=== PATIENT | female | born 1990 | race Caucasian/White ===

== ENCOUNTER 2016-12-04 19:52 | Emergency (ER) | payer OTHER ==
[2016-12-04 20:18] VITALS: BP 110/60; PULSE 85; RESP 18; TEMP 98.9
--- NOTE | 2016-12-04 20:38 | ED ---
Lower Extremity Injury HPI - General Chief Complaint: Extremity Injury, Lower Stated Complaint: left ankle and foot pain Time Seen by Provider: 12/04/16 20:19 Source: patient, RN notes reviewed Mode of arrival: wheelchair Limitations: no limitations - History of Present Illness Initial Comments: 26-year-old female presents to emergency room chief complaint of left ankle pain. She is admitted to the past year or so. She states that it started hurting more over the last 2 months. She went to [facility] as well as her family care doctor and they told her to follow-up with her psychiatrist. Patient states there is no new falls or injuries. The patient denies any change in the pain. She states the chest is constant ankle pain worse to walking. She did not notice any redness or swelling around the area.Patient denies any recent fever, chills, shortness of breath, chest pain, back pain, abdominal pain, nausea vomiting, numbness or tingling, dysuria or hematuria, constipation or diarrhea, headaches or visual changes, or any other current symptoms. - Related Data Home Medications Medication Instructions Recorded Confirmed No Known Home Medications [No 12/04/16 12/04/16 Known Home Medications] Allergies Allergy/AdvReac Type Severity Reaction Status Date / Time iodine Allergy Rash/Hives Verified 12/04/16 20:18 latex Allergy Rash/Hives Verified 12/04/16 20:18 Review of Systems ROS Statement: Those systems with pertinent positive or pertinent negative responses have been documented in the HPI. ROS Other: All systems not noted in ROS Statement are negative. Past Medical History Past Medical History: Asthma Additional Past Medical History / Comment(s): Obstetric history: First was a in 2005 6#10oz. Second was a vaginal delivery 8#5oz in 2008. Third was a vaginal delivery in 2010 6#8oz. This is her fourth and she has had care with me since 9 weeks gestation. A+, abs neg, Rub Imm, RPR NR, Hep B neg, GBS neg. She has been on zoloft since 19 weeks. Her shot and killed himself when she was 11 weeks and she has been dealing with depression and anxiety since. She is in councelling and on zoloft. Normal anatomy US and normal 1hr GTT. History of Any Multi-Drug Resistant Organisms: None Reported Past Surgical History: Appendectomy, Section Past Anesthesia/Blood Transfusion Reactions: No Reported Reaction Past Psychological History: Bipolar, Depression Smoking Status: Current every day smoker Past Alcohol Use History: None Reported Past Drug Use History: Marijuana - Past Family History Father Family Medical History: No Reported History General Exam - General Exam Comments Initial Comments: General: The patient is awake and alert, in no distress, and does not appear acutely ill. Neck: The neck is supple, there is no tenderness. Cardiovascular: There is a regular rate and rhythm. No murmur, rub or gallop is appreciated. Respiratory: Lungs are clear to auscultation, respirations are non-labored, breath sounds are equal. No wheezes, stridor, rales, or rhonchi. Musculoskeletal: Sensation intact with pupils pulses are 4+. Full range of motion of left knee and left ankle. Patient does have diffuse tenderness throughout the left ankle and foot with no point tenderness especially noted. There is no swelling there is no erythema. Neurological: CN II-XII intact, There are no obvious motor or sensory deficits. Coordination appears grossly intact. Speech is normal. Skin: Skin is warm and dry and no rashes or lesions are noted. Psychiatric: Normal mood and affect. Limitations: no limitations Course Vital Signs 12/04/16 20:16 Temperature 98.9 F Pulse Rate 85 Respiratory 18 Rate Blood Pressure 110/60 O2 Sat by Pulse 99 Oximetry Medical Decision Making - Medical Decision Making 26-year-old female presents emergency Department chief complaint of left foot and ankle pain that has been constant for the last year. This time patient had x-rays in 2 weeks ago that were negative. We discussed follow-up with possible orbital for second opinion. Patient is in agreement with the plan. Patient will start prior discharge. We discussed all the patient's questions. She stated she understood. Patient here in the plan. She'll be discharged home. Disposition Clinical Impression: Pain, foot, left, chronic Disposition: HOME SELF-CARE Condition: Stable Instructions: Arthralgia (ED) Additional Instructions: Please use medication as discussed. Please follow up with family doctor if symptoms have not improved over the next two days. Please return to the emergency room if your symptoms increase or worsen or for any other concerns. Referrals: Sanjuana Hernandez MD [Primary Care Provider] - 1-2 days Elijah Crawley MD [Medical Doctor] - 1-2 days Time of Disposition: 20:38
[2016-12-04] MEDS ORDERED: KETOROLAC 60 MG/2 ML VIAL IM STA (20:39)
== END 2016-12-04 20:36 | disposition home or self-care (01) ==
LOC: EC 19:52
DX: O99.89 Other specified diseases and conditions complicating pregnancy, childbirth and the puerperium (principal); G89.29 Other chronic pain; M79.672 Pain in left foot; O99.340 Other mental disorders complicating pregnancy, unspecified trimester; F32.9 Major depressive disorder, single episode, unspecified; O99.330 Smoking (tobacco) complicating pregnancy, unspecified trimester; F17.200 Nicotine dependence, unspecified, uncomplicated; Z91.048 Other nonmedicinal substance allergy status; Z91.040 Latex allergy status; Z79.899 Other long term (current) drug therapy; Z3A.00 Weeks of gestation of pregnancy not specified
CPT/HCPCS: 99283; 96372; J1885

== ENCOUNTER → 2018-11-29 | Outpatient (CLI) | payer OTHER ==
--- NOTE | 2018-11-29 10:03 | US ---
EXAMINATION TYPE: US abdomen complete DATE OF EXAM: 11/29/2018 COMPARISON: Ultrasound of 12/19/1713 CLINICAL HISTORY: R17 Unspecified jaundice. abnormal labs. No pain. NPO. No previous surgeries. EXAM MEASUREMENTS: Liver Length: 16.2 cm Gallbladder Wall: 0.2 cm CBD: 0.4 cm CHD: 0.5 cm Spleen: 8.8 cm Right Kidney: 9.4 x 4.4 x 3.7 cm Left Kidney: 10.0 x 4.2 x 5.0 cm Pancreas: wnl Liver: wnl Gallbladder: wnl Evidence for sonographic Martino's sign: neg CBD: wnl CHD: wnl Spleen: wnl Right Kidney: wnl Left Kidney: wnl Upper IVC: wnl Abd Aorta: No AAA visualized The liver is homogenous. The intrahepatic portion of the IVC and proximal abdominal aorta are within normal limits. There is no evidence of cholelithiasis. Common bile duct is unremarkable. The visu alized portions of the pancreas are homogenous. The spleen is unremarkable. Kidneys are symmetric a nd free of hydronephrosis. No renal lesions are seen. IMPRESSION: Unremarkable abdominal ultrasound. MRI liver could be performed if there is further gustabo rn given this patient's history of jaundice.
== END ==
LOC: RADUSWWP 09:23
PROVIDERS: ATTEND Family Medicine
DX: R17 Unspecified jaundice (principal)
CPT/HCPCS: 76700

== ENCOUNTER → 2018-12-21 | Outpatient (CLI) | payer OTHER | END | disposition home or self-care (01) | LOC: LABWHC1 13:54 | PROVIDERS: ATTEND Family Medicine | DX: J02.9 Acute pharyngitis, unspecified (principal); R05 Cough; R19.7 Diarrhea, unspecified; R11.10 Vomiting, unspecified | CPT/HCPCS: 87502 ==

== ENCOUNTER 2019-06-26 16:56 | Emergency (ER) | payer OTHER ==
[2019-06-26 17:08] VITALS: BP 119/72; PULSE 100; RESP 20; TEMP 98
[2019-06-26] MEDS ORDERED: KETOROLAC 60 MG/2 ML VIAL IM STA (17:51)
--- NOTE | 2019-06-26 18:33 | XR ---
EXAMINATION TYPE: XR thoracic spine complete DATE OF EXAM: 06/26/2019 COMPARISON: NONE HISTORY: Back pain TECHNIQUE: 3 views FINDINGS: Thoracic vertebra have normal spacing and alignment. Posterior elements are intact. There i s no paraspinal mass. IMPRESSION: Negative thoracic spine exam.
--- NOTE | 2019-06-26 18:34 | XR ---
EXAMINATION TYPE: XR lumbar spine 2 or 3V DATE OF EXAM: 06/26/2019 COMPARISON: NONE HISTORY: Back pain TECHNIQUE: 3 views FINDINGS: Lumbar vertebra have normal alignment. Posterior elements are intact. Sacroiliac joints elodia ear normal. IMPRESSION: Normal lumbar spine exam.
[2019-06-26] MEDS ORDERED: CYCLOBENZAPRINE 10MG STARTER 3 TAB BTL PO STA (19:19)
--- NOTE | 2019-06-26 19:19 | ED ---
General Adult HPI - General Source: patient, RN notes reviewed, old records reviewed Mode of arrival: ambulatory Limitations: no limitations <Will Calvo - Last Filed: 06/26/19 19:15> <Jillian De Guzman - Last Filed: 07/01/19 14:37> - General Chief complaint: Back Pain/Injury Stated complaint: back pain Time Seen by Provider: 06/26/19 17:12 - History of Present Illness Initial comments: 29-year-old female patient presents to ED complaining of left parathoracic left paralumbar back pain. Patient reports that she was crawling around with her kids today may be indicated her back then. Denies any paresthesias, denies any radiculopathy. Denies any red flag symptoms. Patient is currently ambulatory without difficulty. Patient does report that she had a fall off a porch in 2005 and she has had waxing and waning back pain since. Denies any recent falls. Denies any other complaints. Is a chance of being . Systemic: Pt denies fatigue, fever/chills, rash. Pt denies weakness, night sweats, weight loss. Neuro: Pt denies headache, visual disturbances, syncope or pre-syncope. HEENT: Pt denies ocular discharge or irritation, otalgia, rhinorrhea, pharyngitis or notable lymphadenopathy. Cardiopulmonary: Pt denies chest pain, SOB, heart palpitations, dyspnea on exertion. Abdominal/GI: Pt denies abdominal pain, n/v/d. : Pt denies dysuria, burning w/ urination, frequency/urgency. Denies new onset urinary or bowel incontinence. MSK: Pt denies loss of strength or function in extremities. Neuro: Pt denies new onset weakness, paresthesias. (Will Calvo) - Related Data Home Medications Medication Instructions Recorded Confirmed No Known Home Medications 12/04/16 12/04/16 Allergies Allergy/AdvReac Type Severity Reaction Status Date / Time iodine Allergy Rash/Hives Verified 06/26/19 17:08 latex Allergy Rash/Hives Verified 06/26/19 17:08 Review of Systems ROS Other: All systems not noted in ROS Statement are negative. <Will Calvo - Last Filed: 06/26/19 19:15> ROS Other: All systems not noted in ROS Statement are negative. <Jillian De Guzman - Last Filed: 07/01/19 14:37> ROS Statement: Those systems with pertinent positive or pertinent negative responses have been documented in the HPI. Past Medical History Past Medical History: Asthma Additional Past Medical History / Comment(s): Obstetric history: First was a in 2005 6#10oz. Second was a vaginal delivery 8#5oz in 2008. Third was a vaginal delivery in 2010 6#8oz. This is her fourth and she has had care with me since 9 weeks gestation. A+, abs neg, Rub Imm, RPR NR, Hep B neg, GBS neg. She has been on zoloft since 19 weeks. Her shot and killed himself when she was 11 weeks and she has been dealing with depression and anxiety since. She is in councelling and on zoloft. Normal anatomy US and normal 1hr GTT. History of Any Multi-Drug Resistant Organisms: None Reported Past Surgical History: Appendectomy, Section Past Anesthesia/Blood Transfusion Reactions: No Reported Reaction Past Psychological History: Bipolar, Depression Smoking Status: Current every day smoker Past Alcohol Use History: None Reported Past Drug Use History: Marijuana - Past Family History Father Family Medical History: No Reported History <Will Calvo - Last Filed: 06/26/19 19:15> General Exam Limitations: no limitations <Will Calvo - Last Filed: 06/26/19 19:15> - General Exam Comments Initial Comments: Constitutional: NAD, AOX3, Pt has pleasant affect. HEENT: NC/AT, trachea midline, neck supple, no lymphadenopathy. Posterior pharynx non erythematous, without exudates. External ears appear normal, without discharge. Mucous membranes moist. Eyes PERRLA, EOM intact. There is no scleral icterus. No pallor noted. Cardiopulmonary: RRR, no murmurs, rubs or gallops, no JVD noted. Lungs CTAB in anterior and posterior rodriguez. No peripheral edema. Abdominal exam: Abdomen soft and non-distended. Abdomen non-tender to palpation in all 4 quadrants. Bowel sounds active in LLQ. No hepatosplenomegaly. No ecchymosis Neuro: CN II-XII grossly intact. No nuchal rigidity. No raccon eyes, no castle sign, no hemotympanum. No cervical spinal tenderness. MSK: Left parathoracic left paralumbar muscular region mildly tender to palpation. Reproducible with resisted movement. Straight leg raise is negative. Heel to toe walking is intact. Distal strength is intact. No posterior calf tenderness bilaterally, homans sign negative bilaterally. Posterior tibialis and radial pulse +2 bilaterally. Sensation intact in upper and lower extremities. Full active ROM in upper and lower extremities, 5/5 stregnth. 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 Patient also signs are stable, afebrile. Physical exam displayed left parathoracic left paralumbar tenderness. No skin changes. Plain films are negative. Patient denies any red flag symptoms including lwoer extremity weakness, loss of bowel or bladder control, paresthesias. She feeling improved with Toradol. She reports she is having some muscle spasms in the region of complaint, will be discharged with Flexeril starter pack. We'll be discharged for follow-up with primary care provider will return to ER physician worsens. Case discussed with Dr. De Guzman. (Will Calvo) I was available for consultation in the emergency department. The history and physical exam were done by the midlevel provider. I was consulted for this patients care. I reviewed the case with the midlevel provider and based on their presentation of the patient, I agree with the assessment, medical decision making and plan of care as documented. Chart was dictated using kidthing dictation software. Attempts were made to correct any dictation errors however some typographical errors may persist. (Jillian De Guzman) Disposition Is patient prescribed a controlled substance at d/c from ED?: No <Will Calvo - Last Filed: 06/26/19 19:15> <Jillian De Guzman - Last Filed: 07/01/19 14:37> Clinical Impression: Strain of thoracic back region, Strain of lumbar paraspinal muscle Disposition: HOME SELF-CARE Condition: Stable Instructions (If sedation given, give patient instructions): Acute Low Back Pain (ED) Additional Instructions: Follow-up with primary care provider tomorrow. Use Tylenol Motrin as needed for pain. Use cold or heat pack as tolerated. Use muscle relaxers as needed for muscle spasm. Return to ER if condition worsens. Referrals: Kourtney Isaacs MD [Primary Care Provider] - 1-2 days
== END 2019-06-26 19:27 | disposition home or self-care (01) ==
LOC: EC 16:56
DX: S39.012A Strain of muscle, fascia and tendon of lower back, initial encounter (principal); S29.012A Strain of muscle and tendon of back wall of thorax, initial encounter; F17.200 Nicotine dependence, unspecified, uncomplicated; Z91.041 Radiographic dye allergy status; Z91.040 Latex allergy status; X58.XXXA Exposure to other specified factors, initial encounter
CPT/HCPCS: 72072; 72100; 99284; 96372; J1885

== ENCOUNTER → 2020-06-08 | Outpatient (CLI) | payer OTHER | END | disposition home or self-care (01) | LOC: LABWHC1 11:50 | PROVIDERS: ATTEND Family Medicine | DX: Z53.9 Procedure and treatment not carried out, unspecified reason (principal) ==

== ENCOUNTER 2020-08-27 12:36 | Emergency (ER) | payer OTHER ==
--- NOTE | 2020-08-27 12:54 | ED ---
General Adult HPI - General Stated complaint: back/neck/shoulder pain Time Seen by Provider: 08/27/20 12:54 - History of Present Illness Initial comments: 30-year-old female presenting to the emergency department with a chief complaint of back pain. Patient reports history of chronic back pain with occasional spasms. Patient reports developed back spasms yesterday that started in her lower back and the radiate superiorly to her neck. Patient states the pain began after she got out of bed and her legs "turned one-way and the torso the other way". Patient reports spasms in the back, particularly on the right side of her neck and trapezius. Patient denies any numbness or tingling. Patient states this feels like "jolts". Patient states she asked her little daughter walk on her back but that made the pain worse. States the pain is worse with left and right rotation of the back. She denies any radiation of the pain to the lower extremities. Denies saddle anesthesia, urinary retention with overflow incontinence or bowel incontinence. Has abdominal pain chest pain. - Related Data Home Medications Medication Instructions Recorded Confirmed ARIPiprazole [Abilify] 5 mg PO DAILY 08/27/20 08/27/20 Escitalopram Oxalate [Lexapro] 10 mg PO HS 08/27/20 08/27/20 Previous Rx's Medication Instructions Recorded Acetaminophen Tab [Tylenol Tab] 500 mg PO Q6H PRN #30 tablet 08/27/20 Cyclobenzaprine [Flexeril] 10 mg PO TID PRN #15 tab 08/27/20 Ibuprofen [Motrin] 800 mg PO Q6HR #30 tab 08/27/20 Allergies Allergy/AdvReac Type Severity Reaction Status Date / Time iodine Allergy Rash/Hives Verified 08/27/20 14:27 latex Allergy Rash/Hives Verified 08/27/20 14:27 Review of Systems ROS Statement: Those systems with pertinent positive or pertinent negative responses have been documented in the HPI. ROS Other: All systems not noted in ROS Statement are negative. Past Medical History Past Medical History: Asthma Additional Past Medical History / Comment(s): Obstetric history: First was a in 2005 6#10oz. Second was a vaginal delivery 8#5oz in 2008. Third was a vaginal delivery in 2010 6#8oz. This is her fourth and she has had care with me since 9 weeks gestation. A+, abs neg, Rub Imm, RPR NR, Hep B neg, GBS neg. She has been on zoloft since 19 weeks. Her shot and killed himself when she was 11 weeks and she has been dealing with depression and anxiety since. She is in councelling and on zoloft. Normal anatomy US and normal 1hr GTT. History of Any Multi-Drug Resistant Organisms: None Reported Past Surgical History: Appendectomy, Section Past Anesthesia/Blood Transfusion Reactions: No Reported Reaction Past Psychological History: Bipolar, Depression Past Alcohol Use History: None Reported Past Drug Use History: Marijuana - Past Family History Father Family Medical History: No Reported History General Exam Limitations: no limitations General appearance: alert, in no apparent distress Head exam: Present: atraumatic, normocephalic, normal inspection Eye exam: Present: normal appearance, PERRL, EOMI Pupils: Present: normal accommodation ENT exam: Present: normal exam, normal oropharynx, mucous membranes moist Neck exam: Present: normal inspection, tenderness (Paraspinal tenderness in the right side of the neck particularly over the right trapezius.), full ROM. Absent: meningismus, lymphadenopathy, thyromegaly Respiratory exam: Present: normal lung sounds bilaterally. Absent: respiratory distress, wheezes, rales Cardiovascular Exam: Present: regular rate, normal rhythm, normal heart sounds Extremities exam: Present: normal inspection, full ROM, normal capillary refill, other (Palpable DP and PT bilaterally. Palpable ulnar and radial pulses bilateral.). Absent: pedal edema, joint swelling, calf tenderness Back exam: Present: normal inspection, tenderness, muscle spasm, paraspinal tenderness (Paraspinal tenderness over the lumbar sacral region up to the neck. Tenderness along the right paraspinal cervical region and tenderness along the trapezius.). Absent: full ROM (Limited range of motion with left and right rotation due to pain), vertebral tenderness Neurological exam: Present: alert, oriented X3, CN II-XII intact Psychiatric exam: Present: normal affect, normal mood Skin exam: Present: warm, dry, intact, normal color Course Vital Signs 08/27/20 08/27/20 12:56 14:19 Temperature 98.2 F Pulse Rate 88 72 Respiratory 18 18 Rate Blood Pressure 114/78 96/62 O2 Sat by Pulse 100 99 Oximetry Medical Decision Making - Medical Decision Making 30-year-old female presenting to the emergency department with a chief complaint of back pain. On physical examination, most of the pain is located on the right side of the neck and trapezius without any paresthesias. No concern for cauda equina. Patient continues to have spasms in the ED. Patient was given Lidoderm patch, Valium, Toradol. On reevaluation patient reports continuous pain with mild improvement. Patient was also given 4 mg of morphine. Patient will be discharged with Tylenol, Motrin, Flexeril. On reevaluation, patient reports improvement in symptoms. Patient was advised to follow-up with route specialist. Return parameters discussed the patient was understanding and agreeable. Disposition Clinical Impression: Mechanical back pain, Muscle spasms of neck Disposition: HOME SELF-CARE Condition: Stable Instructions (If sedation given, give patient instructions): Acute Low Back Pain (ED) Additional Instructions: Take prescribed medication as directed. Follow with route specialist. Return to emergency department if symptoms worsen. Prescriptions: Cyclobenzaprine [Flexeril] 10 mg PO TID PRN #15 tab PRN Reason: Muscle Spasm Ibuprofen [Motrin] 800 mg PO Q6HR #30 tab Acetaminophen Tab [Tylenol Tab] 500 mg PO Q6H PRN #30 tablet PRN Reason: Pain Is patient prescribed a controlled substance at d/c from ED?: No Referrals: Kourtney Isaacs MD [Primary Care Provider] - 1-2 days Time of Disposition: 14:39
[2020-08-27 13:02] VITALS: RESP 18; TEMP 98.2
[2020-08-27] MEDS ORDERED: KETOROLAC 15 MG/ML 1 ML VIAL IM STA (13:10)
[2020-08-27] MEDS ORDERED: DIAZEPAM 5 MG/ML 2 ML INJ IVP STA (13:10)
[2020-08-27] MEDS ORDERED: LIDOCAINE 5% PATCH TOPICAL STA (13:10)
[2020-08-27] MEDS ORDERED: DIAZEPAM 5 MG/ML 2 ML INJ IM STA (13:26)
[2020-08-27] MEDS ORDERED: MORPHINE SULFATE 4 MG/ML SYRINGE IVP STA (14:02)
[2020-08-27] MEDS ORDERED: MORPHINE SULFATE 4 MG/ML SYRINGE IM STA (14:03)
[2020-08-27 14:20] VITALS: BP 96/62; PULSE 72
[2020-08-27] MEDS ORDERED: ACET/COD 300 MG/30 MG STARTER PACK 6 TAB BTL PO STA (14:39)
[2020-08-27] MEDS ORDERED: CYCLOBENZAPRINE 10MG STARTER 3 TAB BTL PO STA (14:39)
== END 2020-08-27 14:54 | disposition home or self-care (01) ==
LOC: EC 12:36
DX: M54.9 Dorsalgia, unspecified (principal); M62.838 Other muscle spasm; F31.9 Bipolar disorder, unspecified; Z79.899 Other long term (current) drug therapy; Z91.040 Latex allergy status; Z91.048 Other nonmedicinal substance allergy status
CPT/HCPCS: 99283; 96372 ×3; J2270; J3360; J1885

== ENCOUNTER → 2020-08-28 | Outpatient (CLI) | payer OTHER ==
--- NOTE | 2020-08-28 15:25 | XR ---
Right shoulder HISTORY: M 25.511 3 views the right shoulder Patient shows screw anchor within the right humeral head. Distal clavicle in the right has been resec ingris. There is a residual ossific density present at the resection site which is well-corticated. Ther e is no fracture or dislocation. Right lung apex as visualized is normal. Bone mineralization and ali gnment are maintained. IMPRESSION: Postop changes. Shoulder MRI may be of benefit.
--- NOTE | 2020-08-28 15:26 | XR ---
Cervical spine HISTORY: M 54.2, M 54.5 5 views of the cervical spine Cervical vertebral bodies show preserved height, alignment, and bone mineralization. Disc spaces and prevertebral soft tissues are normal. There is no evident foraminal encroachment. IMPRESSION: Normal cervical spine.
--- NOTE | 2020-08-28 15:28 | XR ---
Lumbosacral spine HISTORY: M 54.2, M 54.5 5 views of lumbosacral spine, correlation prior lumbar spine 06/26/2019 Lumbar vertebral bodies show preserved height, alignment, and bone mineralization. Disc spaces are ma intained with exception of loss of disc height L5-S1. There is overlying artifact. No evident spondyl olysis. IMPRESSION: Stable findings. No acute abnormality. Loss of disc at L5-S1 can be normal, MRI could be performed for additional evaluation.
== END | disposition home or self-care (01) ==
LOC: RADXRMAIN 14:35
PROVIDERS: ATTEND Family Medicine
DX: Z98.890 Other specified postprocedural states (principal); M54.2 Cervicalgia; M54.5 Low back pain; M25.511 Pain in right shoulder
CPT/HCPCS: 72050; 72110

== ENCOUNTER 2022-08-28 17:34 | Emergency (ER) | payer OTHER ==
[2022-08-28 17:41] VITALS: TEMP 97.9
[2022-08-28] MEDS ORDERED: KETOROLAC 15 MG/ML 1 ML VIAL IM STA (17:55)
--- NOTE | 2022-08-28 18:22 | XR ---
EXAMINATION TYPE: XR shoulder complete BILAT DATE OF EXAM: 08/28/2022 6:15 PM INDICATION: Patient age:Female; 32 years old; Reason for study: pain with rom; COMPARISON: 08/28/2020 TECHNIQUE: Bilateral shoulders was examined in AP, internally rotated and scapular Y projections. FINDINGS: Similar morphology to the right shoulder osseous structures with anchor within the right proximal hum erus. Degeneration changes, clavicular joint with calcified joint body is unchanged from prior in 21. The left shoulder demonstrates no evidence for significant degeneration or acute process. No evidence of fracture. No evidence of acute osseous pathology, joint dislocation, or soft tissue swelling. The remaining por tions of the visualized chest are unremarkable. IMPRESSION: Right: Mild right AC joint osteoarthrosis changes versus remote posttraumatic changes. Repair changes noted with anchor in place.No acute osseous pathology. Left: No acute process of the left shoulder, no significant degeneration of the left shoulder.
--- NOTE | 2022-08-28 18:27 | ED ---
General Adult HPI - General Chief complaint: Extremity Injury, Upper Stated complaint: shoulder pain Time Seen by Provider: 08/28/22 17:42 Source: patient Mode of arrival: ambulatory Limitations: no limitations - History of Present Illness Initial comments: Patient is a 32-year-old female presenting with chief complaint of pain to the bilateral shoulders. states she had a previous rotator cuff injury to the right shoulder, she underwent surgical intervention. She states that as a reason she is having progressive pain again in the shoulder. Patient states that she is also having similar pain to her initial rotator cuff injury in the left shoulder. She denies any new injury or trauma. She admits to pain with range of motion. No chest pain, difficulty breathing, fever, chills, nausea, vomiting. - Related Data Home Medications Medication Instructions Recorded Confirmed ARIPiprazole [Abilify] 5 mg PO DAILY 08/27/20 08/27/20 Escitalopram Oxalate [Lexapro] 10 mg PO HS 08/27/20 08/27/20 Previous Rx's Medication Instructions Recorded Acetaminophen Tab [Tylenol Tab] 500 mg PO Q6H PRN #30 tablet 08/27/20 Cyclobenzaprine [Flexeril] 10 mg PO TID PRN #15 tab 08/27/20 Ibuprofen [Motrin] 800 mg PO Q6HR #30 tab 08/27/20 Allergies Allergy/AdvReac Type Severity Reaction Status Date / Time iodine Allergy Rash/Hives Verified 08/28/22 17:41 latex Allergy Rash/Hives Verified 08/28/22 17:41 Review of Systems ROS Statement: Those systems with pertinent positive or pertinent negative responses have been documented in the HPI. ROS Other: All systems not noted in ROS Statement are negative. Past Medical History Past Medical History: Asthma Additional Past Medical History / Comment(s): Obstetric history: First was a in 2005 6#10oz. Second was a vaginal delivery 8#5oz in 2008. Third was a vaginal delivery in 2010 6#8oz. This is her fourth and she has had care with me since 9 weeks gestation. A+, abs neg, Rub Imm, RPR NR, Hep B neg, GBS neg. She has been on zoloft since 19 weeks. Her shot and killed himself when she was 11 weeks and she has been dealing with depression and anxiety since. She is in councelling and on zoloft. Normal anatomy US and normal 1hr GTT. History of Any Multi-Drug Resistant Organisms: None Reported Past Surgical History: Appendectomy, Section Additional Past Surgical History / Comment(s): rigth shoulder Past Anesthesia/Blood Transfusion Reactions: No Reported Reaction Past Psychological History: Bipolar, Depression Smoking Status: Vaper Past Alcohol Use History: None Reported Past Drug Use History: Marijuana - Past Family History Father Family Medical History: No Reported History General Exam Limitations: no limitations General appearance: alert, in no apparent distress Head exam: Present: atraumatic, normocephalic, normal inspection Eye exam: Present: normal appearance Neck exam: Present: normal inspection, full ROM Extremities exam: Present: normal inspection, full ROM (pain with abduction), tenderness (B/L shoulders, anteriorly) Neurological exam: Present: alert, oriented X3, CN II-XII intact Psychiatric exam: Present: normal affect, normal mood Skin exam: Present: warm, dry, intact, normal color. Absent: rash Course Vital Signs 08/28/22 08/28/22 17:39 20:33 Temperature 97.9 F Pulse Rate 78 80 Respiratory 20 18 Rate Blood Pressure 122/77 120/75 O2 Sat by Pulse 100 100 Oximetry Medical Decision Making - Medical Decision Making Was pt. sent in by a medical professional or institution (JOANIE Chan, [facility] L[facility], urgent care, hospital, or penitentiary...) When possible be specific @ -[No] Did you speak to anyone other than the patient for history (EMS, parent, family, police, friend...)? What history was obtained from this source @ -[No] Did you review nursing and triage notes (agree or disagree)? Why? @ -[I reviewed and agree with nursing and triage notes] Were old charts reviewed (outside hosp., previous admission, EMS record, old EKG, old radiological studies, urgent care reports/EKG's, penitentiary records)? Report findings @ -[No old charts were reviewed] Differential Diagnosis (chest pain, altered mental status, abdominal pain women, abdominal pain men, vaginal bleeding, weakness, fever, dyspnea, syncope, headache, dizziness, GI bleed, back pain, seizure, CVA, palpatations, mental health)? @ -Differential includes strain, fracture, dislocation, muscle spasm, fibromyalgia EKG interpreted by me (3pts min.). @ -[As above] X-rays interpreted by me (1pt min.). @ -Xrays show no acute process CT interpreted by me (1pt min.). @ -[None done] U/S interpreted by me (1pt. min.). @ -[None done] What testing was considered but not performed or refused? (CT, X-rays, U/S, labs)? Why? @ -[None] What meds were considered but not given or refused? Why? @ -[None] Did you discuss the management of the patient with other professionals (professionals i.e. DrBeny, PA, BLEACHER LARD, lab, RT, psych nurse, social media analyst, cementer, teacher, conservation science officer, home health care case manager)? Give summary @ -[No] Was smoking cessation discussed for >3mins.? @ -[No] Was critical care preformed (if so, how long)? @ -[No] Were there social determinants of health that impacted care today? How? (Homelessness, low income, unemployed, alcoholism, drug addiction, transportation, low edu. Level, literacy, decrease access to med. care, correction, rehab)? @ -[No] Was there de-escalation of care discussed even if they declined (Discuss DNR or withdrawal of care, Hospice)? DNR status @ -[No] What co-morbidities impacted this encounter? (DM, HTN, Smoking, COPD, CAD, Cancer, CVA, ARF, Chemo, Hep., AIDS, mental health diagnosis, sleep apnea, morbid obesity)? @ -[None] Was patient admitted / discharged? Hospital course, mention meds given and route, prescriptions, significant lab abnormalities, going to OR and other pertinent info. @ -Patient is a 32-year-old female presenting with chief complaint of bilateral shoulder pain. Patient was bringing her son and for separate complaint and wanted to be evaluated while she was here. Patient has history of right-sided rotator cuff injury which required surgical intervention, she states that the pain is been flaring up and a similar pain is throbbing on the left side. No injury or trauma. On physical examination there is normal inspection is neurovascularly intact, there is some tenderness on palpation of the anterior shoulder. X-rays show no acute process. Pain is likely due to chronic degenerative changes. Patient is educated on supportive treatment and instructed to follow-up with her orthopedic surgeon. Follow-up with PCP. Report back to ER with any new or worsening symptoms. Discussed return parameters and answered all questions. Patient conveyed verbal understanding and agreed to the plan. I discussed this case in detail with my attending Dr. [place] Undiagnosed new problem with uncertain prognosis? @ -[No] Drug Therapy requiring intensive monitoring for toxicity (Heparin, Nitro, Insulin, Cardizem)? @ -[No] Were any procedures done? @ -[No] Diagnosis/symptom? @ -Shoulder strain Acute, or Chronic, or Acute on Chronic? @ -Acute Uncomplicated (without systemic symptoms) or Complicated (systemic symptoms)? @ -Uncomplicated Side effects of treatment? @ -[No] Exacerbation, Progression, or Severe Exacerbation? @ -[No] Disposition Clinical Impression: Strain of shoulder Disposition: HOME SELF-CARE Condition: Good Instructions (If sedation given, give patient instructions): Rotator Cuff Injury (ED), Shoulder Pain (ED) Additional Instructions: Follow-up with PCP and your orthopedist. Report back to ER with any new or worsening symptoms. Take Motrin and Tylenol as needed for pain control. Is patient prescribed a controlled substance at d/c from ED?: No Referrals: Kourtney Isaacs MD [Primary Care Provider] - 1-2 days Johnathan Odonnell DO [Doctor of Osteopathic Medicine] - 1-2 days Time of Disposition: 20:23
[2022-08-28 20:33] VITALS: BP 120/75; PULSE 80; RESP 18
== END 2022-08-28 20:39 | disposition home or self-care (01) ==
LOC: EC 17:34
DX: S46.912A Strain of unspecified muscle, fascia and tendon at shoulder and upper arm level, left arm, initial encounter (principal); S46.911A Strain of unspecified muscle, fascia and tendon at shoulder and upper arm level, right arm, initial encounter; J45.909 Unspecified asthma, uncomplicated; F31.9 Bipolar disorder, unspecified; F12.90 Cannabis use, unspecified, uncomplicated; F17.290 Nicotine dependence, other tobacco product, uncomplicated; Z88.8 Allergy status to other drugs, medicaments and biological substances; Z91.040 Latex allergy status; X58.XXXA Exposure to other specified factors, initial encounter
CPT/HCPCS: 99283; 96372; 73030; J1885

== ENCOUNTER 2023-06-21 17:39 | Emergency (ER) | payer OTHER ==
[2023-06-21] MEDS ORDERED: SODIUM CHLORIDE 0.9% 1,000 ML IV ONE (19:09)
[2023-06-21] MEDS ORDERED: FAMOTIDINE 20 MG/2 ML VIAL IV STA (19:10)
[2023-06-21] MEDS ORDERED: ONDANSETRON 4 MG/2 ML VIAL IVP STA (19:10)
[2023-06-21] MEDS ORDERED: KETOROLAC 15 MG/ML 1 ML VIAL IVP STA (19:10)
[2023-06-21] MEDS ORDERED: METOCLOPRAMIDE 5 MG/ML 2 ML VIAL IVP STA (19:10)
[2023-06-21 20:03] LABS: Basophils % (A) 0 %; Eosinophils # (A) 0.1 k/uL (0-0.7); Eosinophils % (A) 1 %; HCT 40.2 % (34.0-46.0); HGB 13.9 gm/dL (11.4-16.0); Lymphocytes # (A) 0.4 k/uL (1.0-4.8); Lymphocytes % (A) 5 %; MCH 31.1 pg (25.0-35.0); MCHC 34.5 g/dL (31.0-37.0); MCV 90.2 fL (80.0-100.0); Mean Platelet Volume 7.6; Monocytes # (A) 0.7 k/uL (0-1.0); Monocytes % (A) 8 %; Neutrophils # (A) 7.8 k/uL (1.3-7.7); Neutrophils % (A) 86 %; Platelet Count 205 k/uL (150-450); RBC 4.46 m/uL (3.80-5.40); RDW 12.7 % (11.5-15.5); WBC 9.1 k/uL (3.8-10.6)
[2023-06-21 20:26] LABS: ALT 18 U/L (4-34); AST 19 U/L (14-36); African American GFR (CKD) >90 (>60 ml/min/1.73 sqM); Albumin 4.6 g/dL (3.5-5.0); Alkaline Phosphatase 51 U/L (38-126); Anion Gap 9 mmol/L; Blood Urea Nitrogen 8 mg/dL (7-17); Calcium 9.5 mg/dL (8.4-10.2); Carbon Dioxide 23 mmol/L (22-30); Chloride 103 mmol/L (98-107); Glucose 104 mg/dL (74-99); Non-African American GFR(CKD) >90 (>60 ml/min/1.73 sqM); Potassium 3.8 mmol/L (3.5-5.1); Sodium 135 mmol/L (137-145); Total Bilirubin 1.2 mg/dL (0.2-1.3); Total Protein 8.1 g/dL (6.3-8.2)
[2023-06-21 20:43] LABS: HCG,Quantitative Serum <2.4 mIU/mL
[2023-06-21 21:07] LABS: Appearance,Urine Clear (Clear); Bilirubin,Urine Negative (Negative); Blood,Urine Moderate (Negative); Color,Urine Yellow; Glucose,Urine (UA) Negative (Negative); Ketones,Urine Negative (Negative); Leukocyte Esterase,Urine Moderate (Negative); Mucus,Urine Moderate /hpf; Nitrite,Urine Negative (Negative); Protein,Urine Trace (Negative); RBC,Urine 8 /hpf (0-5); Specific Gravity,Urine 1.022 (1.001-1.035); Squamous Epithelial Cell,Urine 2 /hpf (0-4); Urobilinogen,Urine <2.0 mg/dL (<2.0); WBC,Urine 22 /hpf (0-5)
--- NOTE | 2023-06-21 21:21 | ED ---
General Adult HPI - General Chief complaint: Nausea/Vomiting/Diarrhea Stated complaint: Vomiting Time Seen by Provider: 06/21/23 18:25 Source: patient, RN notes reviewed Mode of arrival: ambulatory Limitations: no limitations - History of Present Illness Initial comments: 33-year-old female with no significant past medical history presents to the emergency department with a chief complaint of nausea and vomiting. Patient reports coming symptoms of nasal congestion and generalized body aches. She reports sudden onset over the last day. She does report recent Covid exposure. She denies any known fevers. Denies chest pain, palpitations, shortness of breath, abdominal pain, dysuria, hematuria. - Related Data Home Medications Medication Instructions Recorded Confirmed ARIPiprazole [Abilify] 5 mg PO DAILY 08/27/20 08/27/20 Escitalopram Oxalate [Lexapro] 10 mg PO HS 08/27/20 08/27/20 Previous Rx's Medication Instructions Recorded Acetaminophen Tab [Tylenol Tab] 500 mg PO Q6H PRN #30 tablet 08/27/20 Cyclobenzaprine [Flexeril] 10 mg PO TID PRN #15 tab 08/27/20 Ibuprofen [Motrin] 800 mg PO Q6HR #30 tab 08/27/20 Allergies Allergy/AdvReac Type Severity Reaction Status Date / Time iodine Allergy Rash/Hives Verified 06/21/23 17:51 latex Allergy Rash/Hives Verified 06/21/23 17:51 Review of Systems ROS Statement: Those systems with pertinent positive or pertinent negative responses have been documented in the HPI. ROS Other: All systems not noted in ROS Statement are negative. Past Medical History Past Medical History: Asthma Additional Past Medical History / Comment(s): Obstetric history: First was a in 2005 6#10oz. Second was a vaginal delivery 8#5oz in 2008. Third was a vaginal delivery in 2010 6#8oz. This is her fourth and she has had care with pa since 9 weeks gestation. A+, abs neg, Rub Imm, RPR NR, Hep B neg, GBS neg. She has been on zoloft since 19 weeks. Her shot and killed himself when she was 11 weeks and she has been dealing with depression and anxiety since. She is in councelling and on zol oft. Normal anatomy US and normal 1hr GTT. History of Any Multi-Drug Resistant Organisms: None Reported Past Surgical History: Appendectomy, Section Additional Past Surgical History / Comment(s): rigth shoulder Past Anesthesia/Blood Transfusion Reactions: No Reported Reaction Past Psychological History: Bipolar, Depression Smoking Status: Vaper Past Alcohol Use History: None Reported Past Drug Use History: Marijuana - Past Family History Father Family Medical History: No Reported History General Exam - General Exam Comments Initial Comments: General: Alert, in no acute distress Head: atraumatic normocephalic. Eyes PERRL, EOMI intact, mucous membranes moist Respiratory: Lungs clear to auscultation bilaterally Cardiovascular: Heart rate regular rate and rhythm Abdominal: Soft without guarding or rebound Extremities: Normal inspection with full range of motion and normal capillary refill Neuroogic: alert and oriented 3, CN II-XII intact, able to ambulate with steady gait Skin: warm dry and intact with normal color Limitations: no limitations Course Vital Signs 06/21/23 06/21/23 06/21/23 17:48 21:23 21:50 Temperature 99.5 F 98.2 F Pulse Rate 86 78 82 Respiratory 18 17 17 Rate Blood Pressure 103/64 95/58 97/56 O2 Sat by Pulse 99 99 98 Oximetry - Reevaluation(s) Reevaluation #1: 06/21/23 21:20 Should reevaluated. Patient resting comfortably. Updated on results. Agreeable with the plan for discharge home Medical Decision Making - Medical Decision Making Was pt. sent in by a medical professional or institution (, PA, MUTUEL DEPARTMENT MANAGER, urgent care, hospital, or care home...) When possible be specific @ -[No] Did you speak to anyone other than the patient for history (EMS, parent, family, police, friend...)? What history was obtained from this source @ -[No] Did you review nursing and triage notes (agree or disagree)? Why? @ -[I reviewed and agree with nursing and triage notes] Were old charts reviewed (outside hosp., previous admission, EMS record, old EKG, old radiological studies, urgent care reports/EKG's, care home records)? Report findings @ -[No old charts were reviewed] Differential Diagnosis (chest pain, altered mental status, abdominal pain women, abdominal pain men, vaginal bleeding, weakness, fever, dyspnea, syncope, headache, dizziness, GI bleed, back pain, seizure, CVA, palpatations, mental health, musculoskeletal)? @ -[not applicable] EKG interpreted by me (3pts min.). @ -[As above] X-rays interpreted by me (1pt min.). @ -[None done] CT interpreted by me (1pt min.). @ -[None done] U/S interpreted by me (1pt. min.). @ -[None done] What testing was considered but not performed or refused? (CT, X-rays, U/S, labs)? Why? @ -[None] What meds were considered but not given or refused? Why? @ -[None] Did you discuss the management of the patient with other professionals (professionals i.e. , PA, MUTUEL DEPARTMENT MANAGER, lab, RT, psych nurse, social sciences lecturer, product coordinator, teacher, fisheries enforcement officer, case loader operator)? Give summary @ -[No] Was smoking cessation discussed for >3mins.? @ -[No] Was critical care preformed (if so, how long)? @ -[No] Were there social determinants of health that impacted care today? How? (Homelessness, low income, unemployed, alcoholism, drug addiction, transportat ion, low edu. Level, literacy, decrease access to med. care, skilled nursing, rehab)? @ -[No] Was there de-escalation of care discussed even if they declined (Discuss DNR or withdrawal of care, Hospice)? DNR status @ -[No] What co-morbidities impacted this encounter? (DM, HTN, Smoking, COPD, CAD, Cancer, CVA, ARF, Chemo, Hep., AIDS, mental health diagnosis, sleep apnea, morbid obesity)? @ -[None] Was patient admitted / discharged? Hospital course, mention meds given and route, prescriptions, significant lab abnormalities, going to OR and other pertinent info. @ Discharged. This is a 33-year-old female who presents the emergency department with acute nausea and vomiting. Patient had a thorough history and physical exam performed on the ED. Physical exam essentially unremarkable. Vital signs are stable. Patient afebrile. Heart rate regular rhythm, lungs are to auscultation bilaterally abdomen soft and nontender. Patient laboratory studies which were unremarkable. Covid positive. I discussed results in detail with the patient verbalized understanding all questions addressed. She was provided Zofran, Reglan, but feels 1 L of IV fluids for symptomatic improvement. Return precautions discussed at length. Patient discharged in stable condition. Recommend close follow-up with PCP in 1-2 days. Comes with JERSEY Conner who presented care Undiagnosed new problem with uncertain prognosis? @ -[No] Drug Therapy requiring intensive monitoring for toxicity (Heparin, Nitro, Insulin, Cardizem)? @ -[No] Were any procedures done? @ -[No] Diagnosis/symptom? @ -Nausea and vomiting _ COVID19 Acute, or Chronic, or Acute on Chronic? @ -Acute Uncomplicated (without systemic symptoms) or Complicated (systemic symptoms)? @ -Uncomplicated Side effects of treatment? @ -[No] Exacerbation, Progression, or Severe Exacerbation? @ -[No] Poses a threat to life or bodily function? How? (Chest pain, [place], [place], pneumonia, PE, COPD, DKA, ARF, appy, cholecystitis, CVA, Diverticulitis, Homicidal, Suicidal, threat to staff... and all critical care pts) @ -Low likelihood - Lab Data Result diagrams: 06/21/23 19:44 06/21/23 19:44 Lab Results 06/21/23 06/21/23 06/21/23 Range/Units 19:44 19:44 19:44 WBC 9.1 (3.8-10.6) k/uL RBC 4.46 (3.80-5.40) m/uL Hgb 13.9 (11.4-16.0) gm/dL Hct 40.2 (34.0-46.0) % MCV 90.2 (80.0-100.0) fL MCH 31.1 (25.0-35.0) pg MCHC 34.5 (31.0-37.0) g/dL RDW 12.7 (11.5-15.5) % Plt Count 205 (150-450) k/uL MPV 7.6 Neutrophils % 86 % Lymphocytes % 5 % Monocytes % 8 % Eosinophils % 1 % Basophils % 0 % Neutrophils # 7.8 H (1.3-7.7) k/uL Lymphocytes # 0.4 L (1.0-4.8) k/uL Monocytes # 0.7 (0-1.0) k/uL Eosinophils # 0.1 (0-0.7) k/uL Basophils # 0.0 (0-0.2) k/uL Sodium 135 L (137-145) mmol/L Potassium 3.8 (3.5-5.1) mmol/L Chloride 103 (98-107) mmol/L Carbon Dioxide 23 (22-30) mmol/L Anion Gap 9 mmol/L BUN 8 (7-17) mg/dL Creatinine 0.61 (0.52-1.04) mg/dL Est GFR (CKD-EPI)AfAm >90 (>60 ml/min/1.73 sqM) Est GFR (CKD-EPI)NonAf >90 (>60 ml/min/1.73 sqM) Glucose 104 H (74-99) mg/dL Calcium 9.5 (8.4-10.2) mg/dL Total Bilirubin 1.2 (0.2-1.3) mg/dL AST 19 (14-36) U/L ALT 18 (4-34) U/L Alkaline Phosphatase 51 (38-126) U/L Total Protein 8.1 (6.3-8.2) g/dL Albumin 4.6 (3.5-5.0) g/dL HCG, Quant <2.4 mIU/mL Urine Color Urine Appearance (Clear) Urine pH (5.0-8.0) Ur Specific [place] (1.001-1.035) Urine Protein (Negative) Urine Glucose (UA) (Negative) Urine Ketones (Negative) Urine Blood (Negative) Urine Nitrite (Negative) Urine Bilirubin (Negative) Urine Urobilinogen (<2.0) mg/dL Ur Leukocyte Esterase (Negative) Urine RBC (0-5) /hpf Urine WBC (0-5) /hpf Ur Squamous Epith Cells (0-4) /hpf Urine Mucus (None) /hpf Influenza Type A (PCR) Not Detected (Not Detectd) Influenza Type B (PCR) Not Detected (Not Detectd) RSV (PCR) Not Detected (Not Detectd) SARS-CoV-2 (PCR) Detected A (Not Detectd) 06/21/23 Range/Units 19:44 WBC (3.8-10.6) k/uL RBC (3.80-5.40) m/uL Hgb (11.4-16.0) gm/dL Hct (34.0-46.0) % MCV (80.0-100.0) fL MCH (25.0-35.0) pg MCHC (31.0-37.0) g/dL RDW (11.5-15.5) % Plt Count (150-450) k/uL MPV Neutrophils % % Lymphocytes % % Monocytes % % Eosinophils % % Basophils % % Neutrophils # (1.3-7.7) k/uL Lymphocytes # (1.0-4.8) k/uL Monocytes # (0-1.0) k/uL Eosinophils # (0-0.7) k/uL Basophils # (0-0.2) k/uL Sodium (137-145) mmol/L Potassium (3.5-5.1) mmol/L Chloride (98-107) mmol/L Carbon Dioxide (22-30) mmol/L Anion Gap mmol/L BUN (7-17) mg/dL Creatinine (0.52-1.04) mg/dL Est GFR (CKD-EPI)AfAm (>60 ml/min/1.73 sqM) Est GFR (CKD-EPI)NonAf (>60 ml/min/1.73 sqM) Glucose (74-99) mg/dL Calcium (8.4-10.2) mg/dL Total Bilirubin (0.2-1.3) mg/dL AST (14-36) U/L ALT (4-34) U/L Alkaline Phosphatase (38-126) U/L Total Protein (6.3-8.2) g/dL Albumin (3.5-5.0) g/dL HCG, Quant mIU/mL Urine Color Yellow Urine Appearance Clear (Clear) Urine pH 6.0 (5.0-8.0) Ur Specific [place] 1.022 (1.001-1.035) Urine Protein Trace H (Negative) Urine Glucose (UA) Negative (Negative) Urine Ketones Negative (Negative) Urine Blood Moderate H (Negative) Urine Nitrite Negative (Negative) Urine Bilirubin Negative (Negative) Urine Urobilinogen <2.0 (<2.0) mg/dL Ur Leukocyte Esterase Moderate H (Negative) Urine RBC 8 H (0-5) /hpf Urine WBC 22 H (0-5) /hpf Ur Squamous Epith Cells 2 (0-4) /hpf Urine Mucus Moderate H (None) /hpf Influenza Type A (PCR) (Not Detectd) Influenza Type B (PCR) (Not Detectd) RSV (PCR) (Not Detectd) SARS-CoV-2 (PCR) (Not Detectd) Disposition Clinical Impression: COVID-19, Nausea and vomiting Disposition: HOME SELF-CARE Condition: Stable Instructions (If sedation given, give patient instructions): Acute Nausea and Vomiting (ED) Additional Instructions: Please return to the nearest emergency department if worsening symptoms Is patient prescribed a controlled substance at d/c from ED?: No Referrals: Kourtney Isaacs MD [Primary Care Provider] - 1-2 days Time of Disposition: 21:21
[2023-06-21 21:45] VITALS: RESP 17; TEMP 98.2
[2023-06-21 22:12] VITALS: BP 97/56; PULSE 82
== END 2023-06-21 21:51 | disposition home or self-care (01) ==
LOC: EC 17:39
DX: U07.1 COVID-19 (principal); J45.909 Unspecified asthma, uncomplicated; F31.9 Bipolar disorder, unspecified; F17.290 Nicotine dependence, other tobacco product, uncomplicated; F12.90 Cannabis use, unspecified, uncomplicated; Z79.899 Other long term (current) drug therapy; Z91.040 Latex allergy status; Z91.041 Radiographic dye allergy status
CPT/HCPCS: 36415; 80053; 85025; 81001; 84702; 87086; 87636; 99284; 96374; 96375 ×3; 96361; J2765; J2405; J3490; J1885

== ENCOUNTER 2025-01-05 14:36 | Emergency (ER) | payer OTHER ==
[2025-01-05 14:42] VITALS: RESP 18
[2025-01-05] MEDS: LIDOCAINE 4% PATCH TOPICAL ONE (15:47)
[2025-01-05] MEDS: KETOROLAC 15 MG/ML 1 ML VIAL IM STA (15:48)
[2025-01-05] MEDS: MORPHINE SULFATE 4 MG/ML SYRINGE IM STA (15:49)
--- NOTE | 2025-01-05 16:12 | XR ---
EXAMINATION TYPE: XR shoulder complete RT DATE OF EXAM: 01/05/2025 4:05 PM COMPARISON: 08/28/2022 CLINICAL INDICATION: Female, 34 years old with history of s/o RUE/shoulder pain, LROM, Pain TECHNIQUE: XR shoulder complete RT view(s) obtained. FINDINGS: The humeral head articulates with the glenoid. Somewhat widened to 1.1 cm. A second ossification is between the joint space. No acute fractures are evident. A follow up study can be performed 7-10 days from acute trauma for continued pain. MRI can be perfor med if soft tissue evaluation would be of benefit. IMPRESSION: 1. Correlate for grade 1-2 right acromioclavicular joint separation. This appears chronic [facility], , 01/05/2025 4:10 PM
--- NOTE | 2025-01-05 16:30 | ED ---
General Adult HPI - General Chief complaint: Extremity Injury, Upper Stated complaint: R shoulder pain Time Seen by Provider: 01/05/25 14:52 Source: patient, RN notes reviewed Mode of arrival: ambulatory Limitations: no limitations - History of Present Illness Onset/Timin -: days(s) Location: right, upper extremity Radiation: distal Severity scale (1-10): 10 Consistency: constant Improves with: immobilization Worsens with: movement Associated Symptoms: denies other symptoms Treatments Prior to Arrival: none - Related Data Home Medications Medication Instructions Recorded Confirmed ARIPiprazole [Abilify] 5 mg PO DAILY 08/27/20 08/27/20 Escitalopram Oxalate [Lexapro] 10 mg PO HS 08/27/20 08/27/20 Previous Rx's Medication Instructions Recorded Acetaminophen Tab [Tylenol Tab] 500 mg PO Q6H PRN #30 tablet 08/27/20 Cyclobenzaprine [Flexeril] 10 mg PO TID PRN #15 tab 08/27/20 Ibuprofen [Motrin] 800 mg PO Q6HR #30 tab 08/27/20 Allergies Allergy/AdvReac Type Severity Reaction Status Date / Time iodine Allergy Rash/Hives Verified 01/05/25 14:42 latex Allergy Rash/Hives Verified 01/05/25 14:42 Review of Systems ROS Statement: Those systems with pertinent positive or pertinent negative responses have been documented in the HPI. ROS Other: All systems not noted in ROS Statement are negative. Past Medical History Past Medical History: Asthma Additional Past Medical History / Comment(s): Obstetric history: First was a in 2005 6#10oz. Second was a vaginal delivery 8#5oz in 2008. Third was a vaginal delivery in 2010 6#8oz. This is her fourth and she has had care with me since 9 weeks gestation. A+, abs neg, Rub Imm, RPR NR, Hep B neg, GBS neg. She has been on zoloft since 19 weeks. Her shot and killed himself when she was 11 weeks and she has been dealing with depression and anxiety since. She is in councelling and on zoloft. Normal anatomy US and normal 1hr GTT. History of Any Multi-Drug Resistant Organisms: None Reported Past Surgical History: Appendectomy, Section Additional Past Surgical History / Comment(s): rigth shoulder Past Anesthesia/Blood Transfusion Reactions: No Reported Reaction Past Psychological History: Bipolar, Depression Smoking Status: Vaper Past Alcohol Use History: Occasional Past Drug Use History: Marijuana - Past Family History Father Family Medical History: No Reported History General Exam Limitations: no limitations General appearance: alert, in no apparent distress Head exam: Present: atraumatic, normocephalic, normal inspection Eye exam: Present: normal appearance, PERRL, EOMI. Absent: scleral icterus, conjunctival injection, periorbital swelling ENT exam: Present: normal exam, mucous membranes moist Neck exam: Present: normal inspection. Absent: tenderness, meningismus, lymphadenopathy Respiratory exam: Present: normal lung sounds bilaterally. Absent: respiratory distress, wheezes, rales, rhonchi, stridor Cardiovascular Exam: Present: regular rate, normal rhythm, normal heart sounds. Absent: systolic murmur, diastolic murmur, rubs, gallop, clicks GI/Abdominal exam: Present: soft, normal bowel sounds. Absent: distended, tenderness, guarding, rebound, rigid Extremities exam: Present: tenderness (Positive exquisite right shoulder TTP in accordance to patient reaction. Patient notes minor tenderness of RUE distal to elbow), normal capillary refill, other (RUE distal neurovascular and motor function intact. Radial pulse +2, capillary refill less than 2 seconds). Absent: full ROM (Patient notes significant difficulty abducting RUE due to pain), pedal edema, joint swelling, calf tenderness Back exam: Present: normal inspection Neurological exam: Present: alert, oriented X3, CN II-XII intact Psychiatric exam: Present: normal affect, normal mood Skin exam: Present: warm, dry, intact, normal color. Absent: rash Course Vital Signs 01/05/25 01/05/25 14:38 18:25 Temperature 97.7 F 98 F Pulse Rate 76 71 Respiratory 18 18 Rate Blood Pressure 110/70 131/94 O2 Sat by Pulse 99 100 Oximetry Medical Decision Making - Medical Decision Making Was pt. sent in by a medical professional or institution (, PA, BAG SHOP WORKER, urgent care, hospital, or senior care...) When possible be specific @ -[No] Did you speak to anyone other than the patient for history (EMS, parent, family, police, friend...)? What history was obtained from this source @ -[No] Did you review nursing and triage notes (agree or disagree)? Why? @ -[I reviewed and agree with nursing and triage notes] Were old charts reviewed (outside hosp., previous admission, EMS record, old EKG, old radiological studies, urgent care reports/EKG's, senior care records)? Report findings @ -[No old charts were reviewed] Differential Diagnosis (chest pain, altered mental status, abdominal pain women, abdominal pain men, vaginal bleeding, weakness, fever, dyspnea, syncope, headache, dizziness, GI bleed, back pain, seizure, CVA, palpatations, mental health, musculoskeletal)? @ -Differential Musculoskeletal Muscular strain, contusion, ligament sprain, fracture, arthritis, septic arthritis, bursitis, cellulitis, muscle spasm, nerve compression, DVT, arterial occlusion, herpes zoster, electrolyte abnormality, tumor.... This is not meant to be in all inclusive list EKG interpreted by me (3pts min.). @ -Not done X-rays interpreted by me (1pt min.). @ -[None done] CT interpreted by me (1pt min.). @ -[None done] U/S interpreted by me (1pt. min.). @ -[None done] What testing was considered but not performed or refused? (CT, X-rays, U/S, labs)? Why? @ -[None] What meds were considered but not given or refused? Why? @ -[None] Did you discuss the management of the patient with other professionals (professionals i.e. , PA, BAG SHOP WORKER, lab, RT, psych nurse, social media project manager, marker machine, teacher, district fire management officer, showcase maker)? Give summary @ -[No] Was smoking cessation discussed for >3mins.? @ -[No] Was critical care preformed (if so, how long)? @ -[No] Were there social determinants of health that impacted care today? How? (Homelessness, low income, unemployed, alcoholism, drug addiction, transportation, low edu. Level, literacy, decrease access to med. care, halfway, rehab)? @ -[No] Was there de-escalation of care discussed even if they declined (Discuss DNR or withdrawal of care, Hospice)? DNR status @ -[No] What co-morbidities impacted this encounter? (DM, HTN, Smoking, COPD, CAD, Cancer, CVA, ARF, Chemo, Hep., AIDS, mental health diagnosis, sleep apnea, morbid obesity)? @ -[None] Was patient admitted / discharged? Hospital course, mention meds given and route, prescriptions, significant lab abnormalities, going to OR and other pertinent info. @ -[hospital course] Undiagnosed new problem with uncertain prognosis? @ -[No] Drug Therapy requiring intensive monitoring for toxicity (Heparin, Nitro, Insulin, Cardizem)? @ -[No] Were any procedures done? @ -[No] Diagnosis/symptom? @ -[default] Acute, or Chronic, or Acute on Chronic? @ -Acute Uncomplicated (without systemic symptoms) or Complicated (systemic symptoms)? @ -Uncomplicated Side effects of treatment? @ -[No] Exacerbation, Progression, or Severe Exacerbation? @ -[No] Poses a threat to life or bodily function? How? (Chest pain, [place], [place], pneumonia, PE, COPD, DKA, ARF, appy, cholecystitis, CVA, Diverticulitis, Homicidal, Suicidal, threat to staff... and all critical care pts) @ -[No] Disposition Clinical Impression: Right shoulder pain Disposition: HOME SELF-CARE Condition: Fair Instructions (If sedation given, give patient instructions): Shoulder Pain (ED) Additional Instructions: Rest, ice, compression. Alternate Tylenol/Motrin every 4 hours for pain. Follow-up with PCP/orthopedics for any ongoing or worsening pain/symptoms. Is patient prescribed a controlled substance at d/c from ED?: No Referrals: Hima Vazquez MD [Primary Care Provider] - 1-2 days [facility] [Provider Group] - 1-2 days [facility] [Provider Group] - 1-2 days Time of Disposition: 18:27
[2025-01-05 18:26] VITALS: BP 131/94; PULSE 71; TEMP 98
[2025-01-05] MEDS: HYDROmorphone 1 MG/ML 1 ML SYRINGE IM STA (18:34)
--- NOTE | 2025-01-05 18:49 | US ---
EXAMINATION TYPE: US venous doppler duplex UE RT DATE OF EXAM: 01/05/2025 COMPARISON: NONE CLINICAL INDICATION: Female, 34 years old with history of s/o RUE and right shoulder pain; pt had RT rotator cuff sx 9 years ago, Rt shoulder pain/bruising x 3 days, hx of DVT pt unsure of which arm, no t currently on blood thinners TECHNIQUE: Grayscale, color Doppler and spectral Doppler imaging of the upper extremity. SIDE PERFORMED: Rt VESSELS IMAGED: IJV Subclavian Vein Axilla Vein Brachial Vein(s) Radial Paired Veins Ulnar Paired Veins Cephalic Vein* Basilic Vein* (*superficial vessels) FINDINGS: Right Arm: appears negative for DVT on today's study RT Cephalic V not well visualized on today's study Grayscale, color doppler, spectral doppler imaging performed of the deep veins of the upper extremiti es. IMPRESSION: 1. Right upper extremity ultrasound negative for deep venous thrombosis. [facility], , 01/05/2025 6:47 PM
== END 2025-01-05 18:35 | disposition home or self-care (01) ==
LOC: EC 14:36
DX: M25.511 Pain in right shoulder (principal); F17.290 Nicotine dependence, other tobacco product, uncomplicated; Z91.040 Latex allergy status; Z91.041 Radiographic dye allergy status
CPT/HCPCS: 73030; 93971; 99284; 96372; J2270; J1885